=== PATIENT | male | born 1995 | race African-American/Black ===

== ENCOUNTER 2018-01-05 09:20 | Emergency (ER) | payer SELFPAY ==
--- NOTE | 2018-01-05 10:49 | EDPHYS ---
Physician Documentation [facility] Name: Mich Ludwig Age: 22 yrs Sex: Male : 1995 Arrival Date: 01/05/2018 Time: 09:22 Bed 16 Private MD: ED Physician Lavon Guillory HPI: 01/05 10:15 This 22 yrs old Black Male presents to ER via Ambulatory with complaints of Toothache. cp 10:15 The patient presents with pain. The problem is located in the right lower jaw. Onset: cp The symptoms/episode began/occurred gradually, and became worse yesterday. Duration: The symptoms are continuous. Associated signs and symptoms: Pertinent negatives: fever, inability to eat, swelling, facial. Severity of symptoms: in the emergency department the symptoms are unchanged. Historical: - Allergies: : shrimp; rb1 - Home Meds: : None [Active]; rb1 - PMHx: : pre-hypertension; rb1 - PSHx: : None; rb1 - Immunization history:: Adult Immunizations up to date. - Social history:: Smoking status: Patient/guardian denies using tobacco. - Ebola Screening: : Patient negative for fever greater than or equal to 101.5 degrees Fahrenheit, and additional compatible Ebola Virus Disease symptoms. ROS: 10:20 Constitutional: Negative for body aches, chills, poor PO intake. cp 10:20 Eyes: Negative for injury, pain, redness, and discharge. cp 10:20 ENT: Positive for dental pain, Negative for rhinorrhea, sore throat, difficulty swallowing, difficulty handling secretions. 10:20 Neck: Negative for pain with movement, pain at rest, stiffness, swollen nodes, tenderness. 10:20 Respiratory: Negative for cough, wheezing. 10:20 Abdomen/GI: Negative for abdominal pain, vomiting, diarrhea, constipation. 10:20 Skin: Negative for cellulitis, rash. 10:20 Neuro: Negative for headache, weakness. 10:20 All other systems are negative. Exam: 10:25 Head/Face: Normocephalic, atraumatic. cp 10:25 Constitutional: The patient appears in no acute distress, alert, awake, non-toxic, well developed, well nourished. 10:25 Eyes: Periorbital structures: appear normal, Conjunctiva: normal, no exudate, no injection, Lids and lashes: appear normal, bilaterally. 10:25 ENT: External ear(s): are unremarkable, Ear canal(s): are normal, clear, TM's: bulging, is not appreciated, bilaterally, dullness, bilaterally, erythema, is not appreciated, bilaterally, Nose: is normal, Mouth: Lips: moist, Oral mucosa: pink and intact, moist, Gums: normal with healthy appearance, Tongue: is normal, abscess, is not appreciated, drooling, is not appreciated, Posterior pharynx: is normal, airway is patent, no erythema, no exudate, Dental exam: abscess, is not appreciated, dental caries, that is mild, specifically in the lower right second molar (#31), gum swelling, not appreciated, pain, that is moderate, specifically in the lower right second molar (#31), Voice: is normal. 10:25 Neck: ROM/movement: is normal, is supple, without pain, no range of motions limitations, no meningismus, no nuchal rigidity, Lymph nodes: no appreciated lymphadenopathy. 10:25 Chest/axilla: Inspection: normal, Palpation: is normal, no crepitus, no tenderness. 10:25 Cardiovascular: Rate: normal, Rhythm: regular. 10:25 Respiratory: the patient does not display signs of respiratory distress, Respirations: normal, no use of accessory muscles, no retractions, no splinting, no tachypnea, Breath sounds: are clear throughout, no decreased breath sounds, no stridor, no wheezing. 10:25 Abdomen/GI: Exam negative for discomfort, distension, guarding, Inspection: abdomen appears normal. 10:25 Skin: cellulitis, is not appreciated, no rash present. Vital Signs: 09:31 BP 142 / 88; Pulse 66; Resp 17; Temp 98.7(O); Pulse Ox 99% on R/A; Weight 99.79 kg (R); rb1 Height 5 ft. 11 in. (180.34 cm) (R); Pain 4/10; 10:30 BP 127 / 72; Pulse 61; Resp 16; Pulse Ox 97% on R/A; rb1 09:31 Body Mass Index 30.68 (99.79 kg, 180.34 cm) rb1 MDM: 09:50 Patient medically screened. cp 10:00 Differential diagnosis: dental caries, dental abscess, pericoronitis, gingivostomatitis.cp 10:30 Data reviewed: vital signs, nurses notes, and as a result, I will discharge patient. cp 10:30 Counseling: I had a detailed discussion with the patient and/or guardian regarding: the cp historical points, exam findings, and any diagnostic results supporting the discharge/admit diagnosis, the need for outpatient follow up, for definitive care, a dentist, to return to the emergency department if symptoms worsen or persist or if there are any questions or concerns that arise at home. Administered Medications: No medications were administered Disposition: 11:11 Co-signature as Attending Physician, Lavon Guillory MD I agree with the assessment and kdr plan of care. Disposition: 01/05/18 10:31 Discharged to Home. Impression: Jaw pain - Right Lower Molar Pain. - Condition is Stable. - Discharge Instructions: Dental Pain. - Prescriptions for Amoxicillin 875 mg Oral Tablet - take 1 tablet by ORAL route every 12 hours for 10 days; 20 tablet. Anaprox DS 550 mg Oral Tablet - take 1 tablet by ORAL route every 12 hours As needed; 20 tablet. - Medication Reconciliation Form, Thank You Letter, Antibiotic Education, Prescription Opioid Use form. - Follow up: Migue Waldrop DDS; When: 1 - 2 days; Reason: Recheck today's complaints. - Problem is new. - Symptoms are unchanged. Signatures: Lavon Guillory MD MD [facility] Andrew Ayala PA PA cp Leni Valadez, RN RN rb1 Corrections: (The following items were deleted from the chart) 10:50 10:31 01/05/2018 10:31 Discharged to Home. Impression: Jaw pain - Right Lower Molar rb1 Pain. Condition is Stable. Forms are Medication Reconciliation Form, Thank You Letter, Antibiotic Education, Prescription Opioid Use. Follow up: Migue Waldrop; When: 1 - 2 days; Reason: Recheck today's complaints. Problem is new. Symptoms are unchanged. cp
--- NOTE | 2018-01-05 10:49 | ER ---
Nurse's Notes [facility] Name: Mich Ludwig Age: 22 yrs Sex: Male : 1995 Arrival Date: 01/05/2018 Time: : Bed 16 Private MD: Diagnosis: Jaw pain-Right Lower Molar Pain Presentation: 01/05 09:30 Presenting complaint: Patient states: Has a broken tooth on the right lower jaw. rb1 Transition of care: patient was not received from another setting of care. Onset of symptoms was January 04, 2018. Risk Assessment: Do you want to hurt yourself or someone else? Patient reports no desire to harm self or others. Initial Sepsis Screen: Does the patient meet any 2 criteria? No. Patient's initial sepsis screen is negative. Does the patient have a suspected source of infection? No. Patient's initial sepsis screen is negative. Care prior to arrival: None. 09:30 Method Of Arrival: Ambulatory rb1 09:30 Acuity: RANDALL 4 rb1 Triage Assessment: :31 General: Appears in no apparent distress. comfortable, Behavior is calm, cooperative. rb1 Pain: Complains of pain in right lower jaw Pain currently is 4 out of 10 on a pain scale. EENT: Reports pain in tooth on right lower jaw. Neuro: Level of Consciousness is awake, alert, obeys commands, Oriented to person, place, time, situation. Cardiovascular: Capillary refill < 3 seconds is brisk in bilateral fingers. Respiratory: Airway is patent Respiratory effort is even, unlabored, Respiratory pattern is regular, symmetrical. GI: No signs and/or symptoms were reported involving the gastrointestinal system. : No signs and/or symptoms were reported regarding the genitourinary system. Derm: Skin is dry, Skin is normal, Skin temperature is warm. Historical: - Allergies: : shrimp; rb1 - Home Meds: : None [Active]; rb1 - PMHx: : pre-hypertension; rb1 - PSHx: : None; rb1 - Immunization history:: Adult Immunizations up to date. - Social history:: Smoking status: Patient/guardian denies using tobacco. - Ebola Screening: : Patient negative for fever greater than or equal to 101.5 degrees Fahrenheit, and additional compatible Ebola Virus Disease symptoms. Screenin:30 Abuse screen: Denies threats or abuse. Nutritional screening: No deficits noted. rb1 Tuberculosis screening: No symptoms or risk factors identified. Fall Risk None identified. Assessment: :31 Reassessment: See triage assessment. rb1 10:30 Reassessment: Patient appears in no apparent distress at this time. Patient and/or rb1 family updated on plan of care and expected duration. Pain level reassessed. Patient is alert, oriented x 3, equal unlabored respirations, skin warm/dry/pink. Vital Signs: 09:31 BP 142 / 88; Pulse 66; Resp 17; Temp 98.7(O); Pulse Ox 99% on R/A; Weight 99.79 kg (R); rb1 Height 5 ft. 11 in. (180.34 cm) (R); Pain 4/10; 10:30 BP 127 / 72; Pulse 61; Resp 16; Pulse Ox 97% on R/A; rb1 09:31 Body Mass Index 30.68 (99.79 kg, 180.34 cm) rb1 ED Course: 09:22 Patient arrived in ED. as 09:29 Leni Valadez, RN is Primary Nurse. rb1 09:30 Patient has correct armband on for positive identification. Bed in low position. Call rb1 light in reach. Side rails up X 1. Pulse ox on. NIBP on. : Triage completed. rb1 09:31 Arm band placed on right wrist. rb1 09:50 Andrew Ayala PA is PHCP. cp 09:50 Lavon Guillory MD is Attending Physician. cp 10:31 Migue Waldrop DDS is Referral Physician. cp 10:50 No provider procedures requiring assistance completed. Patient did not have IV access rb1 during this emergency room visit. Administered Medications: No medications were administered Outcome: :31 Discharge ordered by . cp 10:50 Patient left the ED. rb1 10:50 Discharged to home ambulatory, with friend. rb1 10:50 Condition: stable 10:50 Discharge instructions given to patient, Instructed on discharge instructions, follow up and referral plans. medication usage, Demonstrated understanding of instructions, follow-up care, medications, Prescriptions given X 2. Signatures: Mary Arriola as Andrew Ayala PA PA cp Leni Valadez, RN RN rb1
== END 2018-01-05 10:50 | disposition home or self-care (01) ==
LOC: ER 09:20
DX: K08.89 Other specified disorders of teeth and supporting structures (principal); Z91.013 Allergy to seafood
CPT/HCPCS: 99283